=== PATIENT | female | born 1965 | race Caucasian/White ===

== ENCOUNTER → 2020-03-01 08:34 | Outpatient (CLI) | payer OTHER, SELFPAY ==
--- NOTE | ~2020-03-01 | MR_ITS ---
EXAMINATION: MR brain IAC wo con EXAM DATE: 03/01/2020 09:43 INDICATION: Vertigo, loss of hearing more in the left ear. Bilateral tinnitus, buzzing left ear, roar ing right ear. TECHNIQUE: Multi-sequential, multiplanar MR images of the brain, brainstem, internal auditory canals were obtained without contrast. Whole brain sagittal T1, axial diffusion, gradient echo (T2*), T1, T 2, FLAIR sequences obtained. High resolution coronal 3-D FIESTA, coronal T1 FSE, axial T1 FSPGR of t he internal auditory canals. There is no prior study for comparison. FINDINGS: No evidence of mastoid or middle ear opacification. The 7th/8th cranial nerve complexes a re symmetric, normal in course and caliber. No cerebellopontine angle masses. Posterior fossa unrem arkable. Right vertebral artery dominant. There are no areas of restricted diffusion to suggest acute infarcti on. There is no acute hemorrhage seen on the T2*, a hemosiderin sensitive sequence. No intraparench ymal brain mass. The ventricles are normal in size. There are no extra-axial collections. Flow void s are seen in the cerebral arteries on the T2-weighted sequences consistent with their expected paten cy. The orbits are unremarkable. Soft tissue is unremarkable. IMPRESSION: 1. Unremarkable brain MRI examination. Reviewed, dictated and finalized at location A.
== END ==
PROVIDERS: PCP Family Medicine; Visit Provider Otolaryngology
DX: H93.11 Tinnitus, right ear (principal); H90.A32 Mixed conductive and sensorineural hearing loss, unilateral, left ear with restricted hearing on the contralateral side
CPT/HCPCS: 70551

== ENCOUNTER → 2021-02-18 12:20 | Outpatient (CLI) | payer OTHER, SELFPAY ==
--- NOTE | ~2021-02-18 | MR_ITS ---
EXAMINATION: MR cervical spine wo con DATE: 02/18/2021 13:00 INDICATION: Cervical spine fusion. TECHNIQUE: Magnetic resonance imaging (MRI) of the cervical spine was performed without intravenous c ontrast. Sequences included sagittal T2-weighted FSE, sagittal STIR FSE, sagittal T1-weighted FSE, ax ial MERGE, and axial T2-weighted FSE. COMPARISON: Cervical spine MRI 01/15/2017 FINDINGS: There is 11 degrees levoscoliosis of cervicothoracic spine. There is 2 mm retrolisthesis of C4 on C5. There is kyphosis of upper cervical spine. There are changes of anterior fusion procedure from C5 to C7 with discectomies, interbody bone graft, and anterior plate and screws. There is severe ly decreased disc height at C4-C5 and C7-T1 with endplate remodeling. The spinal cord signal intensit y is normal. There are nodules in the thyroid measuring up to 11 mm, likely not clinically significan t. The following disc levels are specifically discussed: C2-C3: The disc does not extend beyond the endplate margin. There is no uncovertebral joint osteoarth ritis. There is mild right and severe left facet joint osteoarthritis. There is mild left neural fora odette stenosis. There is no central canal stenosis. C3-C4: The disc is bulging. There is moderate right and mild left uncovertebral joint osteoarthritis. There is mild right and moderate left facet joint osteoarthritis. There is mild bilateral neural for aminal stenosis. There is mild central canal stenosis with ventral indentation of the spinal cord. C4-C5: The disc is bulging. There is severe bilateral uncovertebral joint osteoarthritis. There is mi ld bilateral facet joint osteoarthritis. There is moderate bilateral neural foraminal stenosis. There is moderate central canal stenosis with ventral and dorsal indentation of spinal cord. C5-C6: There is no uncovertebral joint hypertrophy. There is no facet joint hypertrophy. There is no neural foraminal stenosis. There is no central canal stenosis. C6-C7: There is mild right uncovertebral joint hypertrophy. There is no facet joint hypertrophy. Ther e is mild right neural foraminal stenosis. There is no central canal stenosis. C7-T1: The disc is bulging. There is moderate bilateral uncovertebral joint osteoarthritis. There is severe bilateral facet joint osteoarthritis. There is mild right and moderate left neural foraminal s tenosis. There is mild central canal stenosis with ventral indentation of the spinal cord. IMPRESSION: 1. Severe cervical spondylosis, stable from 01/15/2017. 2. Anterior fusion procedure from C5 to C7. Reviewed, dictated and finalized at location A.
== END ==
PROVIDERS: PCP Family Medicine; Visit Provider Family Medicine
DX: Z98.1 Arthrodesis status (principal); M47.892 Other spondylosis, cervical region
CPT/HCPCS: 72141

== ENCOUNTER → 2022-02-04 13:04 | Outpatient (CLI) | payer OTHER, SELFPAY ==
--- NOTE | ~2022-02-04 | US_ITS ---
EXAMINATION: US carotid duplex BI DATE: 02/04/2022 13:44 INDICATION: Vertigo. Encephalopathy. Arrhythmia. Chest pain. Shortness of breath. TECHNIQUE: Grayscale, color Doppler, and pulsed Doppler images of the cervical carotid arteries were obtained. The degree of vessel stenosis is placed in one of the following categories: normal, <50%, 5 0-69%, >=70% but less than near-occlusion, near-occlusion, or total occlusion. Note that percent sten osis relative to normal distal artery lumen diameter is indirectly measured from velocity measurement s as described by Ronald, et al. Radiology 2003; 229:340-346. COMPARISON: None. FINDINGS: RIGHT: The right common carotid artery (CCA) peak systolic velocity (PSV) is 68 cm/s. The right internal car otid artery (ICA) PSV is 88 cm/s. The right ICA end-diastolic velocity (EDV) is 37 cm/s. The right IC A/CCA PSV ratio is 1.3. Grayscale and color Doppler images yield an estimate of <50% diameter reducti on from plaque in the ICA. The external carotid artery (ECA) PSV is 54 cm/s. There is antegrade flow in the right vertebral artery. LEFT: The left CCA PSV is 73 cm/s. The left ICA PSV is 56 cm/s. The left ICA EDV is 21 cm/s. The left ICA/C CA PSV ratio is 0.8. Grayscale and color Doppler images yield an estimate of <50% diameter reduction from plaque in the ICA. The ECA PSV is 59 cm/s. There is antegrade flow in the left vertebral artery. IMPRESSION: 1. <50% stenosis in the right internal carotid artery. 2. <50% stenosis in the left internal carotid artery. Reviewed, dictated and finalized at location A.
== END ==
PROVIDERS: PCP Family Medicine; Visit Provider Family Medicine
DX: R09.89 Other specified symptoms and signs involving the circulatory and respiratory systems (principal); I65.23 Occlusion and stenosis of bilateral carotid arteries; I49.9 Cardiac arrhythmia, unspecified; R07.89 Other chest pain; R06.02 Shortness of breath; H81.09 Meniere's disease, unspecified ear
CPT/HCPCS: 93880

== ENCOUNTER 2022-02-04 13:52 | Outpatient (CLI) | payer OTHER, SELFPAY ==
--- NOTE | 2022-02-04 | ECG_ITS ---
Measurements Intervals [place] Rate: 77 P: 36 [place]: 127 QRS: 56 QRSD: 79 T: 60 QT: 370 QTc: 421 Interpretive Statements SINUS RHYTHM POSSIBLE LEFT ATRIAL ENLARGEMENT VOLTAGE CRITERIA FOR LVH ST ABNORMALITY IN ANTEROLATERAL LEADS- CONSIDER ISCHEMIA ABNORMAL ECG NO PREVIOUS ECG AVAILABLE FOR COMPARISON Electronically Signed On 02-04-2022 14:52:39 CDT by Andreas Melgoza D.O.
--- NOTE | 2022-02-07 16:18 | WPDHOLTEREM ---
Holter/Event Monitor Holter/Event Monitor Date of procedure: 02/04/22 Holter/Event Procedure: 48 Hr Holter Monitor Indications: Arrhythmia, CP, SOB Conclusion: 1. 48 hour holter monitor on 02/04/22. 2. Underlying rhythm is sinus rhythm. HR range 51-143 bpm; average HR 77 bpm. 3. There are 13 premature supraventricular complexes and 3 supraventricular couplets. No supraventricular tachycardia. 4. There are 9 premature ventricular complexes. No ventricular tachycardia. 5. No sinoatrial or atrioventricular blocks. No significant pauses greater than 2 seconds. 6. Patient reports symptoms of heart beating hard, dizziness, lightheadedness which demonstrate sinus rhythm, HR range 74-103 bpm.
== END 2022-02-04 13:53 | disposition home or self-care (01) ==
LOC: ANHCARD 13:55
PROVIDERS: PCP Family Medicine; Visit Provider Family Medicine
DX: R07.89 Other chest pain (principal); I49.9 Cardiac arrhythmia, unspecified; R06.02 Shortness of breath; H81.09 Meniere's disease, unspecified ear; R09.89 Other specified symptoms and signs involving the circulatory and respiratory systems; R94.31 Abnormal electrocardiogram [ECG] [EKG]
CPT/HCPCS: 93005; 93225; 93226

== ENCOUNTER → 2022-02-14 15:38 | Outpatient (CLI) | payer OTHER, SELFPAY ==
--- NOTE | ~2022-02-14 | CT_ITS ---
EXAMINATION: CTA neck DATE: 02/14/2022 16:02 INDICATION: Pulsatile tinnitus. Vertigo. Intractable migraine. TECHNIQUE: Computed tomographic angiography (CTA) of the neck was performed with 100 mL Omnipaque-350 intravenous contrast. Automated exposure control and iterative reconstruction technique were employe d. The dose-length product was 500.53 mGy-cm. Maximum intensity projection and volume rendered 3D-rec onstructions were created by the technologist on a separate workstation. COMPARISON: None. FINDINGS: There are nodules in the thyroid measuring up to 10 mm, likely not clinically significant. There are no pathologically enlarged lymph nodes. Right vertebral artery is dominant. There is no visible plaqu e in the proximal internal carotid arteries. There is 0% stenosis of the proximal right internal wong tid artery relative to normal distal artery lumen diameter (NASCET criteria). There is 0% stenosis of the proximal left internal carotid artery relative to normal distal artery lumen diameter. The masto id air cells are normal. The paranasal sinuses are clear. The orbits are normal. There is severe cerv ical spondylosis. There are changes of anterior fusion procedure from C5 to C7. IMPRESSION: 1. No etiology for the patient's symptoms. 2. 0% stenosis of the proximal internal carotid arteries relative to normal distal artery lumen diame ters (NASCET criteria). Reviewed, dictated and finalized at location A. IMPRESSION: 1. No etiology for the patient's symptoms. 2. 0% stenosis of the proximal internal carotid arteries relative to normal dis apolinar artery lumen diameters (NASCET criteria).
[2022-02-14 15:52] LABS: Estimated Glomerular Filt Rate > 60
== END ==
PROVIDERS: PCP Family Medicine; Visit Provider Family Medicine
DX: H93.A9 Pulsatile tinnitus, unspecified ear (principal); G43.011 Migraine without aura, intractable, with status migrainosus; R42 Dizziness and giddiness
CPT/HCPCS: 70498; Q9967

== ENCOUNTER 2023-05-11 02:50 | Day surgery (SDC) | payer OTHER, SELFPAY ==
[2023-04-27 14:23] VITALS: BMI 30.2
--- NOTE | 2023-05-08 09:33 | SUR.PREOP ---
Patient called regarding upcoming procedure. Reviewed preop instructions, appointment times, and procedure prep.
--- NOTE | 2023-05-09 11:21 | PM.HPGS ---
History of Present Illness History of Present Illness Consent: Risks, benefits, and alternatives have been discussed and questions answered. Patient agrees to proceed with procedure. Chief complaint: neoplasm screening Narrative: Uma Lopes is a 58 year old female Referred for colon cancer screening. Review of Systems Review of Systems: All systems reviewed & are unremarkable except as noted in HPI and below PMFSH Social History Social History Smoking status: Never smoker Substance use type: does not use Meds Home Medications and Allergies Home Medications Medication Instructions Recorded Confirmed Type atogepant 60 mg tablet (Qulipta) 60 mg PO DAILY 04/27/23 04/27/23 History clonazepam 1 mg tablet 1 mg PO BID PRN Dizziness 04/27/23 04/27/23 History diclofenac sodium 75 mg 75 mg PO DAILY 04/27/23 04/27/23 History tablet,delayed release duloxetine 30 mg capsule,delayed 30 mg PO DAILY 04/27/23 04/27/23 History release hydrochlorothiazide 25 mg tablet 25 mg PO DAILY 04/27/23 04/27/23 History losartan 50 mg tablet 50 mg PO DAILY 04/27/23 04/27/23 History meclizine 25 mg tablet 25 mg PO DAILY PRN Dizziness 04/27/23 05/11/23 History zolpidem 10 mg tablet 10 mg PO HS PRN Insomnia 04/27/23 04/27/23 History Allergies Allergy/AdvReac Type Severity Reaction Status Date / Time bacitracin Allergy Unknown Swelling Verified 05/11/23 07:43 benzalkonium chloride Allergy Unknown Swelling Verified 05/11/23 07:43 gramicidin D Allergy Unknown Swelling Verified 05/11/23 07:43 polymyxin B Allergy Unknown Swelling Verified 05/11/23 07:43 BACITRACIN ZINC Allergy Unknown Swelling Uncoded 05/11/23 07:43 NEOMYCIN SULFATE Allergy Unknown Swelling Uncoded 05/11/23 07:43 POLYMYXIN B SULFATE Allergy Unknown Swelling Uncoded 05/11/23 07:43 Exam Const: General: alert Orientation/consciousness: patient oriented x3 Resp: Auscultation: clear to auscultation bilaterally Cardio: Rhythm: regular rhythm GI: GI Palp: Yes Soft to palpation and No Tenderness to palpation present (GI) Neuro: General: patient oriented x3 Assessment and Plan Assessment and plan (1) Colon cancer screening: Code(s): Z12.11 - Encounter for screening for malignant neoplasm of colon Status: Acute Assessment and Plan: Colonoscopy with possible biopsy or polypectomy or cautery or injection of substances.
[2023-05-11 07:44] VITALS: BP 149/90; PULSE 77; RESP 16; TEMP 36.6; O2SAT 100
[2023-05-11] MEDS: LACTATED RINGERS 1,000 ML 150 ML IV CONT (08:02)
[2023-05-11 09:06] VITALS: BP 119/75; PULSE 74; RESP 18; O2SAT 98
[2023-05-11 09:13] VITALS: BP 120/87; PULSE 78; RESP 18; O2SAT 100
[2023-05-11 09:24] VITALS: BP 143/95; PULSE 70; RESP 16; O2SAT 100
== END 2023-05-11 09:36 | disposition home or self-care (01) ==
PROVIDERS: PCP Family Medicine; Visit Provider Internal Medicine Gastroenterology
PROC: 0DJD8ZZ Inspection of Lower Intestinal Tract, Via Natural or Artificial Opening Endoscopic (ICD-10-PCS; CPT 45378; principal; 2023-05-11 09:00)
DX: Z12.11 Encounter for screening for malignant neoplasm of colon (principal)
CPT/HCPCS: 45378; J2704; J7120

== ENCOUNTER 2024-08-11 00:37 | Day surgery (SDC) | payer OTHER, SELFPAY ==
[2024-08-04 09:26] VITALS: BMI 28.3
--- OUTSIDE RECORDS SUMMARY | 2024-08-11 00:40 | XMS_ITS | Referral Summary ---
Author Organization [facility] Address [address] [place] [address] Care Team Providers Care Chancellor Name Role Phone Ester Beebe MD Primary Care Provider Source Comments [facility],non-owned Affiliates and Associated Physician Practices is amultiple site organization consisting of ambulatory clinics and hospital sitesin [place], [place], [place] and [place]. This disclosure is being madepursuant to the Care Everywhere program and may not contain all information available regarding this patient. Last updated 18.[facility] Allergies Active Allergy Reactions Criticality Noted Date Comments Qhdsrbmc-Ahycsituxz-She ymyxin Itching,Rash Medium 03/17/2019 Triple antibiotic made sore worse/itching Medications * Be aware that medications may not be up to date on this document. Alwaysverify current medications with the patient. Medication Sig Dispensed Refills Start Date End Date Status B Complex Vitamins CAPS Take 1 capsule by mouth once daily Active butalbital-acetami nophen-caffeine (FIORICET) 50-325-40 MG tablet Take 1 tablet by mouth 4 times daily as needed 01/03/2021 Active Fremanezumab-vfrm 225 MG/1.5ML SOAJ Inject 225 mg subcutaneously every 30 days 01/17/2021 Active losartan (COZAAR) 25 MG tablet Take 25 mg by mouth once daily Active montelukast (SINGULAIR) 10 MG tablet Take 1 tablet by mouth at bedtime 01/29/2021 Active meloxicam (MOBIC) 15 MG tablet Take 15 mg by mouth once daily 04/04/2021 Active methylcellulose, laxative, (CITRUCEL) powder Take by mouth once daily Active ondansetron (ZOFRAN) 8 MG tablet Take 8 mg by mouth as needed Active polyethylene glycol 3350 (MIRALAX) 17 GM/SCOOP powder Take 17 g by mouth once daily Active zolpidem (AMBIEN) 10 MG tablet Take 10 mg by mouth at bedtime 10/30/2020 Active Active Problems No known active problems Social History Tobacco Use Types Packs/Day Years Used Date Smoking Tobacco: Never Smokeless Tobacco: Never Alcohol Use Standard Drinks/Week Comments Yes 0 (1 standard drink = 0.6 oz pur e alcohol) occas Sex and Gender Information Value Date Recorded Sex Assigned at Not on file Gender Identity Not on file Sexual Orientation Not on file Last Filed Vital Signs Vital Sign Reading Time Taken Comments Blood Pressure 130/78 04/11/2021 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 Pulse 81 04/11/2021 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 Temperature 36.3 C (97.4 F) 03/26/2009 11:06 AM CDT Respiratory Rate 16 03/26/2009 4:42 PM CDT Oxygen Saturation 96% 03/26/2009 4:42 PM CDT Inhaled Oxygen Concentration - - Weight 77.1 kg (170 lb) 04/11/2021 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 Height 160 cm (5' 3 ) 04/11/2021 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
--- OUTSIDE RECORDS SUMMARY | 2024-08-11 00:40 | XMS_ITS | Patient Health Summary ---
Author Organization [facility] Address [address] [place] [address] Care Team Providers Care Minor League Baseball Player Name Role Phone Ester Beebe MD Primary Care Provider [phone] Note from [facility] [place][note 2],non-owned Affiliates and Associated Physician Practices is amultiple site organization consisting of ambulatory clinics and hospital sitesin [place], [place], [place] and [place]. This disclosure is being madepursuant to the Care Everywhere program and may not contain all information available regarding this patient. Last updated 18.[facility] Allergies * Qdwgkfas-Kcofqihrlb-Axtsdunih(Itching,Rash) -Medium Criticality Medications * Be aware that medications may not be up to date on this document. Alwaysverify current medications with the patient. * B Complex Vitamins CAPS Take 1 capsule by mouth once daily * qoihhpubiw-cdhhiomuowazt-kpkphdwg (FIORICET) 50-325-40 MG tablet(Started 01/03/2021) Take 1 tablet by mouth 4 times daily as needed * Fremanezumab-vfrm 225 MG/1.5ML SOAJ(Started 01/17/2021) Inject 225 mg subcutaneously every 30 days * losartan (COZAAR) 25 MG tablet Take 25 mg by mouth once daily * montelukast (SINGULAIR) 10 MG tablet(Started 01/29/2021) Take 1 tablet by mouth at bedtime * meloxicam (MOBIC) 15 MG tablet(Started 04/04/2021) Take 15 mg by mouth once daily * methylcellulose, laxative, (CITRUCEL) powder Take by mouth once daily * ondansetron (ZOFRAN) 8 MG tablet Take 8 mg by mouth as needed * polyethylene glycol 3350 (MIRALAX) 17 GM/SCOOP powder Take 17 g by mouth once daily * zolpidem (AMBIEN) 10 MG tablet(Started 10/30/2020) Take 10 mg by mouth at bedtime Active Problems No known active problems Social [...] Comments Blood Pressure 130/78 04/11/2021 8:50 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 Pulse 81 04/11/2021 8:50 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 Temperature 36.3 C (97.4 F) 03/26/2009 11:06 AM CDT Respiratory Rate 16 03/26/2009 4:42 PM CDT Oxygen Saturation 96% 03/26/2009 4:42 PM CDT Inhaled Oxygen Concentration - - Weight 77.1 kg (170 lb) 04/11/2021 8:50 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 Height 160 cm (5' 3 ) 04/11/2021 8:50 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 Body Mass Index 30.11 04/11/2021 8:50 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 Procedures * XR CERVICAL SPINE 2 OR 3VW(Performed 07/25/2010) Performed for Status post cervical spinal fusion * CT CERVICAL SPINE WO CONTRAST(Performed 12/20/2009) Performed for Pseudoarthrosis * PT PTT PANEL(Performed 03/26/2009) * HCG URINE QUALITATIVE - POINT OF CARE(Performed 03/26/2009) * GROSS + MICRO EXAM(Performed 03/26/2009) * GROSS + MICRO EXAM(Performed 03/26/2009) * GROSS + MICRO EXAM(Performed 01/22/1999) Results * XR CERVICAL SPINE 2 OR 3 VW (07/25/2010 10:04 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) Anatomical Region Laterality Modality Spine Radiographic Zana ging 07/25/2010 12:1 5 PM HEAD GAUGE UNIT OPERATOR Impressions 07/25/2010 12:42 PM HEAD GAUGE UNIT OPERATOR Anterior cervical fusion has been performed from C5 through C7. Hardware is intact. Discogenic degenerative change is present at C4-C5 and C3-C4. Narrative 07/25/2010 12:42 PM HEAD GAUGE UNIT OPERATOR CERVICAL SPINE INDICATION: Neck pain FINDINGS: AP and lateral views of the cervical spine are submitted. Anterior cervical fusion plate spans the C5 through C7 vertebral bodies. Bone graft material is present at C5-C6 and C6-C7 disc space. This appears to be well incorporated into the adjacent vertebral bodies. Moderate disc space narrowing is present at C4-C5 with mild disc space narrowing at C3-C4. Osteophyte production is present at each of these levels. Hardware is intact and there is no radiographic evidence of loosening. Procedure Note Amy Soernsen MD - 07/25/2010 CERVICAL SPINE INDICATION: Neck pain FINDINGS: AP and lateral views of the cervical spine are submitted. Anterior cervical fusion plate spans the C5 through C7 vertebral bodies. Bone graft material is present at C5-C6 and C6-C7 disc space. This appears to be well incorporated into the adjacent vertebral bodies. Moderate disc space narrowing is present at C4-C5 with mild disc space narrowing at C3-C4. Osteophyte production is present at each of these levels. Hardware is intact and there is no radiographic evidence of loosening. IMPRESSION Anterior cervical fusion has been performed from C5 through C7. Hardware is intact. Discogenic degenerative change is present at C4-C5 and C3-C4. Vinny Rosado MD DIAGNOSTIC ZANA GING ORDERABLES * CT CERVICAL SPINE NON CONTRAST (12/20/2009 9:14 AM CDT) Anatomical Region Laterality Modality Spine Computed Tomogra phy 12/20/2009 11:5 0 AM CDT Impressions 12/20/2009 12:53 PM CDT Mild right foraminal narrowing at C3-C4. Mild bilateral foraminal narrowing at C4-C5. No evidence of hardware complication. Narrative 12/20/2009 12:[address] CERVICAL SPINE WITHOUT CONTRAST INDICATION: Cervical radiculopathy, neck pain, prior cervical surgery. COMPARISON: None available. TECHNIQUE: Multiple axial CT images of the cervical spine were obtained along with coronal and sagittal multiplanar reformats. FINDINGS: Anterior osteometallic and interbody allograft fusion from C5 to C7 is noted. There is no lucency about the hardware. The allografts are well incorporated. C2-C3: No canal or neural foraminal stenosis. C3-C4: Disc osteophyte bulge eccentric to the right. Mild right foraminal narrowing secondary to uncovertebral joint hypertrophy. No canal stenosis. C4-C5: Broad-based disc bulge with partial effacement of the ventral thecal sac. Mild bilateral foraminal narrowing secondary to uncovertebral joint hypertrophy. No canal stenosis. C5-C6: No canal or neural foraminal stenosis. C6-C7: No canal or neural foraminal stenosis. C7-T1: No canal or neural foraminal stenosis. Procedure Note Obed Joaquin MD - 12/20/2009 CT CERVICAL SPINE WITHOUT CONTRAST INDICATION: Cervical radiculopathy, neck pain, prior cervical surgery. COMPARISON: None available. TECHNIQUE: Multiple axial CT images of the cervical spine were obtained along with coronal and sagittal multiplanar reformats. FINDINGS: Anterior osteometallic and interbody allograft fusion from C5 to C7 is noted. There is no lucency about the hardware. The allografts are well incorporated. C2-C3: No canal or neural foraminal stenosis. C3-C4: Disc osteophyte bulge eccentric to the right. Mild right foraminal narrowing secondary to uncovertebral joint hypertrophy. No canal stenosis. C4-C5: Broad-based disc bulge with partial effacement of the ventral thecal sac. Mild bilateral foraminal narrowing secondary to uncovertebral joint hypertrophy. No canal stenosis. C5-C6: No canal or neural foraminal stenosis. C6-C7: No canal or neural foraminal stenosis. C7-T1: No canal or neural foraminal stenosis. IMPRESSION Mild right foraminal narrowing at C3-C4. Mild bilateral foraminal narrowing at C4-C5. No evidence of hardware complication. Vinny Rosado MD CT ORDERABLES * PT PTT PANEL (03/26/2009 6:45 AM CDT) PT 10.1 9.4 - 11.4 seconds [facility] INR .95 SEE BELOW [facility] Comment: 0.92-1.12 Normal 2.0-3.0 Therapeutic Low Risk 2.5-3.5 Therapeutic High Risk PTT 27.6 26.0 - 32.8 seconds [facility] BLOOD SPECIMEN / Unknown 03/26/2009 6:45 AM CDT 03/26/2009 6:53 AM CDT Narrative Resulting Agency Comment Performed By -COA Vinny Rosado MD LAB - COAGULAT ION ORDERABLES [facility] [address] [place] [address] * HCG URINE QUALITATIVE - POINT OF CARE (03/26/2009 5:50 AM CDT) HCG Qual Urine NEGATIVE Negative [facility] QC Verified yes Yes [facility] POC T TESTING Urine specimen (specimen) URINE / Unknown 03/26/2009 5:50 AM CDT Vinny Rosado MD LAB - POINT OF CARE ORDERABLES Performing Organization Address [facility] Co de Phone Number [facility] [address] [address] * GROSS + MICRO EXAM (03/26/2009 12:00 AM CDT) Only the most recent of3 resultswithin the time period is included. Result CASE NUMBER [id number] Comment: ORDERING PHYSICIAN VINNY ROSADO SPECIMEN TYPE Hardware DATE OF PROCEDURE 03/26/2009 SPECIMEN LABELED Hardware PRE-OP DIAGNOSIS Pseudoarthrosis GROSS DESCRIPTION GROSS DESCRIPTION One specimen is received without fixative labeled hardware patient mUa Lopes, and consists of a metal plate, 4 x 2 cm in diameter and 0.5 cm in thickness. It has three small screws in the center. Also in the container there are six metal screws measuring 1.7 cm in length and 0.3 cm in diameter. No sections are submitted. MICROSCOPIC DESCRIPTION None. DIAGNOSIS Hardware, removed from cervical vertebra history of pseudoarthrosis Dictated by Nirav Meredith M.D. [employer] AMY MORALES Electronically Signed By NIRAV MEREDITH MISCELLANEOUS SAMPLE S / Unknown 03/26/2009 03/26/2009 1:20 PM CDT Historical Provider LAB - PATHOLOGY/C YTOLOGY ORDERABLES Care Teams Minor League Baseball Player Relationship Specialty Start Date End Date Ester Beebe MD [address] [place] [address] PCP - General Family Medicine 04/11/21
--- OUTSIDE RECORDS SUMMARY | 2024-08-11 00:40 | XMS_ITS | Data Portability ---
Author Organization [facility], [facility] Address [address] [address] Care Team Providers Care Orthopaedic General Name Role Phone Unavailable Primary Care Provider Unavailabl e Assessment No assessment recorded. Plan of Treatment Reminders Order Date Submit Date Provider Last Modified By Organization Details Last Modified Time Details Appointments None record ed. Lab None record ed. Referral None record ed. Procedures None record ed. Surgeries None record ed. Imaging None record ed. Medication Orders None record ed. Patient TargetsNo targets recorded. Patient InstructionsNo instructions recorded. Reason for Referral None Reported. Results Created Date Observation Date Name Description Value Unit Range Abnormal Flag Note LastModifiedBy Organization Detail LastModifiedTime 05/21/20 18 01/07/2018 MRI, shoul josh, w/wo contr ast No observ ation record ed. BARCODE Not Available 2017 09:44:51 05/21/20 18 12/10/2017 XR, shoul josh No observ ation record ed. BARCODE Not Available 2017 09:44:51 Result Notes None recorded. Problems No Known Problems Procedures Surgical History Date Name Laterality Status Provider Name and Address Organization Details Recorded Time 06/01/19 17 foot manipulation completed [facility] 05/20/2018 14:56:52 06/01/18 99 fusion completed [facility] 05/20/2018 14:56:35 Imaging Results Imaging Date Name Status LastModified by Organiz ation Details LastModified Time 01/07/2018 MRI, shoulder, w/wo contrast completed BARCODE Information not available 05/21/2018 09:44:51 12/10/2017 XR, shoulder completed BARCODE Information not available 05/21/2018 09:44:51 Procedure Notes None recorded. Medical Equipment None Reported. Allergies No known drug allergies Medications Name Sig Start Date Stop Date Status Note LastModified by Organization Details LastModified Time hydrocodone 5 mg-acetamino phen 325 mg tablet active Not Available Not Available Not Available ondansetron HCl 8 mg tablet one tablet tid prn active Not Available Not Available No t Available prednisone 20 mg tablet active Not Available Not Available Not Available butalbital-a cetaminophen -caffeine 50 mg-325 mg-40 mg tablet active Not Available Not Available No t Available oxycodone-ac etaminophen 5 mg-325 mg tablet active Not Available Not Available Not Available losartan 25 mg tablet active Not Available Not Available No t Available diazepam 10 mg tablet Take 1 tablet(s) 30 mins PRIOR to appointment , Repeat at appointment time PRN anxiety active Not Available Not Available No t Available zolpidem 10 mg tablet active Not Available Not Available No t Available topiramate 100 mg tablet active Not Available Not Available Not Available bupropion HCl XL 150 mg 24 hr tablet, extended release active Not Available Not Available Not Available Vitals Date Recorded Body height Body mass index (BMI) Body weight Heart rate Systolic blood pressure Diastolic blood pressure Provider Name and Address Organization Details Last Updated DateTime 8 160.02 cm 28.3 kg/m2 97674.7 8 g 79 /min 159 mm[Hg] 95 mm[Hg] Lana Kaufman [facility] [facility] 14:53:54 Date Recorded Body height Body mass index (BMI) Body weight Heart rate Systolic blood pressure Diastolic blood pressure Provider Name and Address Organization Details Last Updated DateTime 9 160.02 cm 28.3 kg/m2 46752.7 8 g 78 /min 135 mm[Hg] 91 mm[Hg] Jos Romero [facility] 10:32:44 Social History Question Answer Notes LastModified by Organizat ion Details LastModified Time Tobacco Smoking Status Never Smoker Lana jaquez [facility] 05/20/2018 14:55:48 What Is Your Level Of Alcohol Consumption? 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 08/05/2018 Information not available 12/23/2018 Seat Belts Used Routinely Yes Information not available 05/20/2018 Sex: Unknown Functional Status None recorded. Mental Status None recorded. Family History Relationship Description Onset Age of this Age Resolved Age Notes LastModified by Organization Details LastModified Time Mother Arthritis sjohll Not available 05/20/2018 14:54:19 Mother Family history of malignant neoplasm sjohll Not available 2017 14:55:38 Father Diabetes mellitus sjohll Not available 2017 14:54:38 Brother Diabetes mellitus sjohll Not available 2017 14:54:38 Sister Family history of malignant neoplasm sjohll Not available 2017 14:55:38 Medical History Condition Response Coronary Artery Disease N HIV or AIDS N Gout N Kidney Stones N Hyperthyroidism N Hernia N Head Trauma/Injury N COPD N Blood Clots N Lung Disease N Hypothyroidism N Depression N Pacemaker N Anxiety Disorder N Arthritis N Cancer N Stroke N Neck Injury N Leg or Foot Ulcers N High Cholesterol N Liver Disease N Rheumatoid Arthritis N Headaches N Fibromyalgia N Kidney Disease N Heart Problems N Migraines N Thyroid Problems N Anemia N Multiple Sclerosis N Tendon Tear N Ulcers N Heart Attack ([place]) N Diabetes N Bleeding Disorder N Seizures/Epilepsy N Tuberculosis N Urinary Tract Infection N Back Problems N Diverticulitis N Asthma N Lupus N Peripheral Vascular Disease N Sleep Disorder N GERD/Reflux N Hepatitis N Aneurysm N Heart Disease N Pulmonary Embolism N Hypertension N Osteoporosis N Gynecological HistoryNo gynecological history recorded. Obstetrics History GPAL:G 0 P 0 0 0 0 Past Encounters Encounter ID Performer Location Encounter Start Date Encounter Closed Date Diagnosis/Indication Diagnosis SNOMED-CT Code Diagnosis ICD10 Code Diagnosis Note [id number] [facility] [address] [place] [id number] 05/20/2018 14:23:04 05/21/2018 11:32:03 [id number] [facility] [id number] [place] [id number] 08/05/2018 10:21:03 08/05/2018 13:29:15 Shoulder pain 74455017 M25.512 Health Concerns Section Related Observation LastModified by Organization Detai ls LastModified Time None Recorded Concern Status LastModified by Organization Details LastModified Time None Recorded Advance Directives Directive None Recorded Payers Encounter Date Sequence Insurance Name Policy Number Policy Koehler Covered Member ID Koehler Member ID Guarantor Name 05/20/2018 1 [employer] - DOS PRIOR TO 20 - [facility] [employer] [id number] Uma Lopes [id number] Uma Lopes 08/05/2018 1 [employer] - DOS PRIOR TO 20 - [facility] [employer] [id number] Uma Lopes [id number] Uma Lopes OBGyn Episode No OBEpisode recorded.
--- OUTSIDE RECORDS SUMMARY | 2024-08-11 00:40 | XMS_ITS | Encounter Summary ---
Author Organization [employer] [facility] Address [address] [place] [address] Care Team Providers Care Coffee Roaster Name Role Phone Ester Beebe MD Primary Care Provider Encounter Details Date Type Department Care Team (Late st Contact Info) Description 08/09/2024 External Device Data [facility] ABSTRACTION Provider, Abstract NO ADDRESS ON FILE Social History Tobacco Use Types Packs/Day Years Used Date Smoking Tobacco: Never Smokeless Tobacco: Never Alcohol Use Standard Drinks/Week Comments Yes 0 (1 standard drink = 0.6 oz pur e alcohol) rarely--holidays Feeling Safe Answer Date Recorded Within the last year, have y ou been afraid of your partner or ex-partner? No 09/22/2023 Within the last year, have y ou been humiliated or emotionally abused in other ways by your partner or ex-partner? No Within the last year, have y ou been kicked, hit, slapped, or otherwise physically hurt by your partner or ex-partner? No 09/22/2023 Within the last year, have y ou been raped or forced to have any kind of sexual activity by your partner or ex-partner? No 09/22/2023 Comments No Sex and Gender Information Value Date Recorded Sex Assigned at Not on file Legal Sex Female 5:41 AM DEVIL DOG Gender Identity Not on file Sexual Orientation Not on file Occupation Industry Job Start Date Job End Date Not on file Not on file Not on file Not on file documented as of this encounter Plan of Treatment Upcoming Encounters Date Type Department Care Team (Late st Contact Info) Description 09/22/2024 9:20 AM CDT Appointment [facility] [address] [place] [address] [place] [address] [address] [facility] [address] [place] [address] 09/22/2024 10:15 AM CDT Office Visit [facility] Breast Surgery [address] [facility] [address] [place] [address] [place] [address] [address] [facility] [address] [place] [address] documented as of this encounter Visit Diagnoses Not on filedocumented in this encounter Care Teams Coffee Roaster Relationship Specialty Start Date End Date Ester Beebe MD [address] [place] [phone] PCP - General Family Practice 04/28/16 documented as of this encounter
--- OUTSIDE RECORDS SUMMARY | 2024-08-11 00:40 | XMS_ITS | Clinical Summary ---
Author Organization [facility] Address [address] [place] [address] Care Team Providers Care Municipal Court Judge Name Role Phone Ester Beebe MD Primary Care Provider Source Comments [facility],non-owned Affiliates and Associated Physician Practices is amultiple site organization consisting of ambulatory clinics and hospital sitesin [place], [place] and [place]. This disclosure is being madepursuant to the Care Everywhere program and may not contain all information available regarding this patient. Last updated 18.[facility] Allergies Active Allergy Reactions Criticality Noted Date Comments Dkcyytaj-Huiopsjvag-Lqn ymyxin Itching,Rash Medium 03/17/2019 Triple antibiotic made [...] Active Active Problems No known active problems Family History Medical History Relation Name Comments CAD (Coronary Artery Disease) Brother Diabetes - Type 2 Brother Hypertension Brother CVA Father Diabetes - Type 2 Father Hypertension Father Cancer - Breast Mother Hypertension Mother Cancer - Breast Sister Relation Name Status Comments Brother Father Mother Sister Social History Tobacco Use Types Packs/Day Years [...] Comments Blood Pressure 130/78 04/11/2021 8:50 AM PIGMENT AND LACQUER MIXER Pulse 81 04/11/2021 8:50 AM PIGMENT AND LACQUER MIXER Temperature 36.3 C (97.4 F) 03/26/2009 11:06 AM CDT Respiratory Rate 16 03/26/2009 4:42 PM CDT Oxygen Saturation 96% 03/26/2009 4:42 PM CDT Inhaled Oxygen Concentration - - Weight 77.1 kg (170 lb) 04/11/2021 8:50 AM PIGMENT AND LACQUER MIXER Height 160 cm (5' 3 ) 04/11/2021 8:50 AM PIGMENT AND LACQUER MIXER Body Mass Index 30.11 04/11/2021 8:50 AM PIGMENT AND LACQUER MIXER Plan of Treatment Health Maintenance Due Date Last Done Comments COLOGUARD (AGES 45-75) - COL ON CA SCREENING 1966 COLON MONITORING 1966 COLONOSCOPY - COLON CA SCREENING 1966 CT COLONOGRAPHY - COLON CA SCREENING 1966 Colorectal Cancer Screening 1966 FIT - COLON CA SCREENING 1966 FLEX SIG - COLON CA SCREENING 1966 LIPID TESTING 1966 MAMMOGRAM 1966 PAP SMEAR 1966 HIV SCREENING 1981 HEPATITIS C SCREENING 04/28/1984 DTAP/TDAP/TD VACCINES (1 - Tdap) 1985 HEPATITIS B VACCINE (1 of 3 - 19+ 3-dose series) 1985 PNEUMOCOCCAL VACCINE 50+ (1 of 1 - PCV) 2016 ZOSTER VACCINE (1 of 2) 2016 SCREENING FOR DIABETES 04/11/2021 COVID-19 VACCINE (1 - 2023-2 5 season) 2024 INFLUENZA VACCINE (#1) 2024 DEPRESSION SCREENING 06/01/2024 HIB VACCINE Aged Out No longer eligi ble based on patient's age to complete this topic HPV VACCINE Aged Out No longer eligi ble based on patient's age to complete this topic MENINGOCOCCAL (Group B) VACC INE SHARED DECISION-MAKING Aged Out No longer eligibl e based on patient's age to complete this topic MENINGOCOCCAL GROUPS A/C/Y/W VACCINE Aged Out No longer eligible b ased on patient's age to complete this topic PNEUMOCOCCAL VACCINE Aged Out No long er eligible based on patient's age to complete this topic Advance Directives * Full Code (Latest Code Status on File) Date Activated Date Inactivated Comments 03/26/2009 11:07 AM 03/27/2009 6:[address] Judge Relationship Specialty Start Date End Date Ester Beebe MD [address] [place] [address] PCP - General Family Medicine 04/11/21
--- OUTSIDE RECORDS SUMMARY | 2024-08-11 00:40 | XMS_ITS | Clinical Summary ---
Author Organization [facility] [place] Address [address] [place] [address] Phone Care Team Providers Care Log Chain Feeder Name Role Phone Ester Beebe MD Primary Care Provider Allergies Active Allergy Reactions Criticality Noted Date Comments Xdfsg-Cgrbq-Kbenhqa-Pra moxine Itching Low 08/16/2020 Bepypkcz-Bzryfvwfwh-Hvs ymyxin Itching,Rash Medium 03/17/2019 Triple antibiotic made sore worse/itching Medications losartan (COZAAR) 25 mg tabletIndicatio ns:Family history of breast cancer 9 Active hydroCHLOROthia zide 25 mg tablet Take 25 mg by mouth daily. Active diclofenac sodium (VOLTAREN) 75 mg Tablet, Delayed Release (E.C.) Take 75 mg by mouth daily. Active DULoxetine (CYMBALTA) 30 mg Capsule, Delayed Release(E.C.) Take 30 mg by mouth daily. Active atogepant (Qulipta) 60 mg Tablet Take 60 mg by mouth daily. Active onabotulinumtox Brunilda (BOTOX INJECTION) by Injection route. For migraines Active clonazePAM (KlonoPIN) 1 mg tablet Take 1 mg by mouth 2 times daily. Active SUMAtriptan (IMITREX) 50 mg tablet Take 50 mg by mouth every 2 hours as needed for Headaches. may repeat in 2 hours; max dose 200mg in 24 hours Active cholecalciferol , vitamin D3, (VITAMIN D3 ORAL) Take 500 Int'l Units by mouth. Active meclizine (ANTIVERT) 25 mg tablet 25 mg. 2 Active zolpidem (AMBIEN) 10 mg tablet 1 Active potassium chloride (KLOR-CON) 20 mEq Extended Release tablet 4 Active D3-red wine-resveratro l-malt 5,000-200 unit-mg Capsule 125 mcg. 2 Active montelukast (SINGULAIR) 10 mg tablet Take 1 Tablet by mouth daily at bedtime. 1 Active ondansetron (ZOFRAN) 8 mg Tablet one tablet tid prn Active buPROPion HCL (WELLBUTRIN XL) 150 mg Extended Release 24 hour tablet Active Active Problems Patient Care Coordination No te Formatting of this note migh t be different from the original. Primary Care: Ester Beebe MD Referring Provider: No referring provider defined for this encounter. Other: Dr. Gege Salcedo MD PCP: Dr. 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 Overview (12/14/2009): Excised right 10/25/2009 Diffuse cystic mastopathy 12/08/2008 Family history of breast cancer 12/08/2008 Overview (12/14/2009): Maternal grandmother breast cancer age 59, mother breast cancer aged 64 (Carlie Yo), sister breast cancer age 29 (Frances Adela) Tendinitis HTN (hypertension) Encounters Date Type Department Care Team Description 08/09/2024 External Device Data STL ABSTRACTION Provider, Abstract 08/06/2024 External Device Data STL ABSTRACTION Provider, Abstract 08/05/2024 External Device Data STL ABSTRACTION Provider, Abstract 08/03/2024 External Device Data STL ABSTRACTION Provider, Abstract 07/19/2024 External Device Data STL ABSTRACTION Provider, Abstract 06/22/2024 External Device Data STL ABSTRACTION Provider, Abstract 06/22/2024 External Device Data STL ABSTRACTION Provider, Abstract 06/07/2024 External Device Data STL ABSTRACTION Provider, Abstract from Last 3 Months Family History Medical History Relation Name Comments No Known Problems Daughter Diabetes Father Heart Disease Father Breast Cancer Maternal Grandmother dx ayala gracie 59 y/o Breast Cancer Mother Carlie Yo dx @ 64 No Known Problems Other Breast Cancer Sister Frances dx @ 29 BRCA n eg Cancer Neg Hx Ovarian Cancer Neg Hx Relation Name Status Comments Daughter Father Maternal Grandmother Mother Carlie Yo Alive Other Sister Frances Social History Tobacco Use Types Packs/Day Years Used Date Smoking Tobacco: Never Smokeless Tobacco: Never Tobacco Cessation:Counseling Given: Not Answered Alcohol Use Standard Drinks/Week Comments Yes 0 [...] on file Legal Sex Female 5:41 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 Gender Identity Not on file Sexual Orientation Not on file Occupation Industry Job Start Date Job End Date Not on file Not on file Not on file Not on file Last Filed Vital Signs Vital Sign Reading Time Taken Comments Blood Pressure 125/83 09/22/2023 9:52 AM CDT Pulse 84 09/22/2023 9:52 AM CDT Temperature 36.4 C (97.5 F) 05/14/2017 12:18 PM HISTORIAN RESEARCH ASSISTANT Respiratory Rate 20 05/15/2016 2:55 PM HISTORIAN RESEARCH ASSISTANT Oxygen Saturation 100% 05/15/2016 2:55 PM HISTORIAN RESEARCH ASSISTANT Inhaled Oxygen Concentration - - Weight 81.2 kg (179 lb) 09/22/2023 9:52 AM CDT Height 160 cm (5' 3 ) 09/22/2023 9:52 AM CDT Body Mass Index 31.71 09/22/2023 9:52 AM CDT Plan of Treatment Upcoming Encounters Date Type Department Care Team (Late st Contact Info) Description 09/22/2024 9:20 AM CD[facility] [address] [place] [address] [place] [address] [facility] [address] [place] [address] 09/22/2024 10:15 AM CDT Office Visit [facility] Breast [facility] [address] [facility] [address] [place] [address] [place] [address] [facility] [facility] [address] [place] [address] Health Maintenance Due Date Last Done Comments Pre-Diabetes and Diabetes Screening 1966 DTAP/TDAP/TD VACCINES (1 - Tdap) 1985 HEPATITIS B VACCINES (1 of 3 - 19+ 3-dose series) 1985 CERVICAL CANCER SCREENING 1996 COLORECTAL SCREENING 2011 Colorectal Cancer Screening 2011 FIT-DNA Q 3 years 2011 FIT/FOBT Q 1 year 2011 Flex Sig/CT Colonography Q 5 years 2011 ZOSTER VACCINE (1 of 2) 2016 INFLUENZA VACCINE (#1) 2023 BREAST CANCER SCREENING 09/21/2024 09/22/19, 09/18/2022, 09/12/2021, Additional history exists PNEUMOCOCCAL VACCINE 0-49 YEARS Aged Out No longer eligible based on patient's age to complete this topic Medical Devices Implanted Type Area Staffing Administrator Device Identifier Shelf Expiration Date Model / Serial / Lot Hemostatic Surgicel 4x8in 1950 - [id number] Implanted:Qty: 1 on 05/15/2016 by Renetta Cancino MD at [facility] Hemostatic Left: Breast [employer] 07/01/20202 / / [id number] Hardware Screws And Titanium Plate Description:1999, REDO 2010 Procedures Procedure Name Priority Date/Time Associated Diagnosis Comments MAMMO 3D RENÉ SCREEN BILAT W OR WO CAD Routine 09/22/2023 9:40 AM CDT At high risk for breast cancer Dense breast tissue on mammogram Fibrocystic disease of left breast Family history of breast cancer Fibroadenoma of breast, unspecified laterality from Last 3 Months or Most Recently Relevant to Health Maintenance Results * MAMMO SCRN BILAT 3D RENÉ W OR WO CAD (09/22/2023 9:40 AM CDT) Anatomical Region Laterality Modality Breast Bilateral Mammography 09/22/2023 10:1 1 AM CDT Impressions 09/22/2023 12:33 PM CDT IMPRESSION: 1. No concerning findings. OVERALL FINAL ASSESSMENT: BI-RADS CATEGORY 2 - Benign findings. RECOMMENDATIONS: 1. Recommend annual mammography. Narrative 09/22/2023 12:33 PM CDT BILATERAL SCREENING DIGITAL MAMMOGRAM WITH 3D TOMOSYNTHESIS AND CAD DATE: 09/22/2023 9:40 AM DICTATION LOCATION: [facility] HISTORY: Routine yearly screening exam. TECHNIQUE: Low-dose full-field digital breast tomosynthesis examination was performed of both breasts with 2D and 3D acquisitions. CAD was utilized. COMPARISON: Studies dating back to 08/01/2019 BREAST COMPOSITION: There are scattered areas of fibroglandular density. FINDINGS: No concerning dominant masses, suspicious calcifications, parenchymal asymmetries or areas of architectural distortion are identified in either breast. Changes related to bilateral excisional biopsies. Procedure Note Tang Walker MD - 09/22/2023 BILATERAL SCREENING DIGITAL MAMMOGRAM WITH 3D TOMOSYNTHESIS AND CAD DATE: 09/22/2023 9:40 AM DICTATION LOCATION: [facility] HISTORY: Routine yearly screening exam. TECHNIQUE: Low-dose full-field digital breast tomosynthesis examination was performed of both breasts with 2D and 3D acquisitions. CAD was utilized. COMPARISON: Studies dating back to 08/01/2019 BREAST COMPOSITION: There are scattered areas of fibroglandular density. FINDINGS: No concerning dominant masses, suspicious calcifications, parenchymal asymmetries or areas of architectural distortion are identified in either breast. Changes related to bilateral excisional biopsies. IMPRESSION: 1. No concerning findings. OVERALL FINAL ASSESSMENT: BI-RADS CATEGORY 2 - Benign findings. RECOMMENDATIONS: 1. Recommend annual mammography. Gege Salcedo MD MAMMO ORDERABLES Final R esult from Last 3 Months or Most Recently Relevant to Health Maintenance Insurance [employer] [facility] Address: [id number] [place] [address] Advance Directives For more information, please contact: [phone] * Full Code (Latest Code Status on File) Date Activated Date Inactivated Comments 05/15/2016 12:37 PM 05/15/2016 5:15 PM * Full Code Date Activated Date Inactivated Comments 05/15/2016 12:02 PM 05/15/2016 12:37 PM Care Teams Log Chain Feeder Relationship Specialty Start Date End Date Ester Beebe MD [address] [place] [address] PCP - General Family Practice 04/28/16
--- OUTSIDE RECORDS SUMMARY | 2024-08-11 00:40 | XMS_ITS | Clinical Summary ---
Author Organization [facility] Address [address] [place] [id number] Care Team Providers Care Stewardesses Teacher Name Role Phone Ester Beebe MD Primary Care Provider Allergies Active Allergy Reactions Criticality Noted Date Comments Neomycin-Bacitracin Zn-Polymyx Rash Low 08/13 Medications No known medications Social History Tobacco Use Types Packs/Day Years Used Date Smoking Tobacco: Never Smokeless Tobacco: Never Alcohol Use Standard Drinks/Week Comments Never 0 (1 standard drink = 0.6 oz pur e alcohol) AUDIT-C Answer Date Recorded Frequency of Alcohol Consumption Never 08/14/2019 Average Number of Drinks Not on file 020 Frequency of Binge Drinking Not on file 07/30 Comments No Sex and Gender Information Value Date Recorded Sex Assigned at Not on file Legal Sex Female 1:37 AM CDT Gender Identity Not on file Sexual Orientation Not on file Last Filed Vital Signs Vital Sign Reading Time Taken Comments Blood Pressure 137/96 11/27/2019 7:58 AM CDT Pulse 88 11/27/2019 7:58 AM CDT Temperature 36.5 C (97.7 F) 11/27/2019 7:58 AM CDT Respiratory Rate 17 11/27/2019 7:58 AM CDT Oxygen Saturation 98% 11/27/2019 7:58 AM CDT Inhaled Oxygen Concentration - - Weight 74.8 kg (165 lb) 11/27/2019 7:58 AM CDT Height 160 cm (5' 3 ) 11/27/2019 7:58 AM CDT Body Mass Index 29.23 11/27/2019 7:58 AM CDT Plan of Treatment Health Maintenance Due Date Last Done Comments Cervical Cancer Screening Pa p Smear (Age 30 to 64) Every 3 Years 1966 Colorectal Cancer Screening Colonoscopy (10 Years) 1966 Annual Physical 1969 Hepatitis C 1984 Hepatitis B Vaccines (1 of 3 - 19+ 3-dose series) 1985 Cervical Cancer Screening Pa p with HPV Testing (Age 30 to 64) Every 5 Years 1996 Cervical Cancer Screening wi th HPV 1996 Mammogram Screening 2006 DTaP, Tdap and Td Vaccines ( 2 - Td or Tdap) 05/20/2022 05/20/2012, 12/27/2004, 06/02/1989 COVID-19 Vaccine (2023-2 5 season) 2024 Influenza Adult (#1) 2024 Zoster Vaccines Completed 11/23/2018, 09/16/2018 Meningococcal B Vaccine Aged Out No l onger eligible based on patient's age to complete this topic Meningococcal Vaccine Aged Out No irma luz eligible based on patient's age to complete this topic Pneumococcal Vaccine: Pediatrics (0 to 5 Years) and At-Risk Patients (6 to 64 Years) Aged Out No longer eligible b ased on patient's age to complete this topic RSV Immunizations Under 20 Months Aged Out No longer eligible b ased on patient's age to complete this topic Insurance SocialProof [facility] Advance Directives Documents on File Type Date Recorded Patient Scoop Operator Expl anation Advance Directives and Living Will 08/02/2012 ADVANCED DIRECTIVES Care Teams Stewardesses Teacher Relationship Specialty Start Date End Date Ester Beebe MD [address] [place] [address] PCP - General FAMILY PRACTICE 08/14/19
--- OUTSIDE RECORDS SUMMARY | 2024-08-11 00:40 | XMS_ITS | Referral Summary ---
[facility] Organization [facility] Address [address] [place] [address] Care Team Providers Care Food And Nutrition Teacher Name Role Phone Ester Beebe MD Primary Care Provider Allergies Active Allergy Reactions Criticality Noted Date Comments Ptjuzpmq-Akefpaawqt-Cmhgl yxin Itching Low 03/17/2019 Triple antibiotic made sore worse/itching Medications losartan (COZAAR) 25 mg tablet Take 25 mg by mouth daily Active cholecalciferol, vitamin D3, (VITAMIN D3 ORAL) Take 500 Int'l Units by mouth Active polyethylene glycol (MIRALAX) 17 gram packetIndications :constipation Take 17 g by mouth daily Active methylcellulose oral powder Take by mouth daily Active turmeric root extract 500 mg capsule Take by mouth Active vitamin B complex capsule Take 1 capsule by mouth daily Active fremanezumab-vfrm (AJOVY) 225 mg/1.5 mL auto-injector subcutaneous auto-injectorIndi cations:Migraine Prevention Inject 1.5 mL (225 mg total) under the skin every 30 (thirty) days 1 mL 11 1 Active butalbital-acetam inophen-caffeine (ESGIC) 50-325-40 mg per tabletIndications :Migraine without aura and without status migrainosus, not intractable Take one (1) TABLET by mouth FOUR (4) TIMES DAILY as needed 15 tablet 3 2 Active zolpidem (AMBIEN) 10 mg tablet TAKE ONE HALF (1/2) TABLET BY MOUTH NIGHTLY NEEDED FOR INSOMNIA 30 tablet 1 2 Active Active Problems Problem Noted Date Diagnosed Date HARMONY (obstructive sleep apnea) 12/27/2020 Assessment & Plan (12/27/2020 9:47 AM CDT): The patient continues to benefit from CPAP at 10 cm water pressure. She is going to restart her migraine medication and for headaches do not improve, then she will call back and I will order a CPAP titration study. Her DME is [facility]. Primary insomnia 12/27/2020 Assessment & Plan (12/27/2020 9:47 AM CDT): The patient continues to use Ambien 3-5 mg at bedtime for insomnia and this is working fairly well for her. Migraine without aura and wi thout status migrainosus, not intractable 03/17/2019 Assessment & Plan (07/11/2021 10:04 AM SENIOR PROGRAMMER): Much improved on Ajovy 225 monthly, happy with current management Needs a few days of treatment per month, usually responds to excedrin, rarely needs fioricet, although this does work well when she takes it Continue current management and efforts at lifestyle management Continue yearly follow-up. She will consider transition to provider closer to home since she is doing well, but will call to schedule 1 year follow-up here or in [place] office if preferred Assessment & Plan (01/17/2021 11:45 AM CDT): 12 days per month Some episodic dizziness but less than in past. Wants to try alternate treatment, emgality is least preferred due to burning at injection site. Aimovig was of uncertain benefit/side effect (now concerned cinnamon is causing the same 'not feeling right' symptom she was concerned Aimovig and Emgality caused). She is interested in trying Ajovy and sample provided with prescription for auto injector I will have her return in 3-6 months to discuss benefit of Ajovy injections and decide next step She did not include on med list but reports she has been on lexapro and felt that helped headaches/anxiety. Assessment & Plan (07/05/2020 9:54 AM SENIOR PROGRAMMER): Has stopped aimovig without benefit on dizziness, but no return of headaches. Has had some phantom smells since having COVID, but this is getting better slowly. She is happy to remain off treatment at this time and will call if change/issue I offered 1 year follow-up and she will decide later on if she would like to continue regular follow-up or just follow-up PRN if things remain well controlled. Assessment & Plan (03/08/2020 11:43 AM CDT): Headaches less severe, has mild symptom every morning Fatigue and dizziness are much worse, wonders if aimovig cause, although I expressed my suspicion this was something other than aimovig. She reports adequate CPAP use, as symptoms of nonrefreshing sleep, daytime fatigue, naps in evening, morning headaches could otherwise suggest HARMONY, has new machine so not clear why this would be worse. Has appointment with sleep doctor in April to discuss. Discussed possibility of depression contributing to symptoms, as we had discussed restarting antidepressant at last visit, however she does not think that is the case. She would like to follow-up with ENT testing, which I suggested she have forwarded to my office for review, before making change. If they do not have explanation, she would like to try holding aimovig as next step. I suggested after that my next recommendation would be SNRI or restarting lexapro if still having issues. Will plan on 3 month follow-up but she will call to discuss after ENT evaluation Assessment & Plan (12/29/2019 10:07 AM CDT): Headaches have worsened with recent stressors/weather changes. Increased aimovig to 140 last weeks, feels so far last week has been better, but obviously needs to see how things do with time. Discussed SNRIs vs Ajovy as potential next steps if this is inadequate. She has previously seen benefit to lexapro after sister's and questions how much stress is contributing currently. Assessment & Plan (09/19/2019 3:51 PM CDT): Headaches worsened over last couple months. Had received refill request in July for Emgality instead of Aimovig, unclear why pharmacy requested this refill, but she reports better control during her time on Aimovig and feels headaches worsened after this switch. I would like to try to get her back on Aimovig 70 mg, order placed and she will call if issue/concern/coverage problem. Continued to encourage hydration and limiting fioricet use as every other day use of this is a problem for headaches. Will plan on 3 month follow-up but can adjust medication as needed in interim for improved control Assessment & Plan (03/17/2019 9:43 AM CDT): 53 year old woman with one day weekly of migraine headache on amitriptyline 25 mg, but finds constipation and dry mouth so bothersome she does not think she can continue medication. She had limiting side effects with topamax and propranolol as well. Patient reports the following headache risk factors: Caffeine overuse, poor hydration, lack of cardiovascular exercise, family history I reviewed all these factors at length with the patient and suggested treatment plan should include focused effort to reduce these lifestyle contributions to headache risk. We also discussed headache prevention and abortive medications, including: Lifestyle change alone given concern that inadequate fluid intake is main contributor to her dry mouth and constipation (which preceded amitriptyline but much worse on it) Trial nortriptyline in place of amitriptyline Aimovig, which her sister responded well to. She would like to discontinue amitriptyline and trial aimovig, although I did rehabilitation services counselor her that main side effects of this medication are injection site reactions and constipation and that increased fluid intake will be vital regardless of approach. I provided her with sample aimovig and instruction to call if insurance coverage inadequate to make medication affordable. I did inform her of assistance program that she could look into as well. RTC in 3 months, call for changes/issues in interim and if Aimovig too expensive then would consider nortriptyline as next step. Inadequate fluid intake 03/17/2019 Assessment & Plan (03/17/2019 9:45 AM CDT): 1-2 bottles of water a day, Drinks predominantly iced tea which I told her to wean Constipation 03/17/2019 Assessment & Plan (09/19/2019 3:53 PM CDT): Preceded CGRP, on miralax daily. Management per PCP, encouraged hydration. Assessment & Plan (03/17/2019 9:44 AM CDT): Chronic issue, worse on amitriptyline Suspect dehydration a contributor Continue management, watch out for worsening after starting Aimovig Social History Tobacco Use Types Packs/Day Years Used Date Smoking Tobacco: Never Smokeless Tobacco: Never Alcohol Use Standard Drinks/Week Comments Yes 0 (1 standard drink = 0.6 oz pur e alcohol) rare Personal Safety Answer Date Recorded Getting School Help Needed Not on file 08/14 Comments Unknown Sex and Gender Information Value Date Recorded Sex Assigned at Not on file Legal Sex Female 2:48 AM SENIOR PROGRAMMER Gender Identity Not on file Sexual Orientation Not on file Last Filed Vital Signs Vital Sign Reading Time Taken Comments Blood Pressure 124/70 01/17/2021 11:08 AM CDT Pulse 80 01/17/2021 11:08 AM CDT Temperature 36.4 C (97.6 F) 12/27/2020 9:07 AM CDT Respiratory Rate 16 01/17/2021 11:08 AM CDT Oxygen Saturation 98% 12/27/2020 9:07 AM CDT Inhaled Oxygen Concentration - - Weight 77.1 kg (170 lb) 01/17/2021 11:08 AM CDT Height 160 cm (5' 3 ) 01/17/2021 11:08 AM CDT Body Mass Index 30.11 01/17/2021 11:08 AM CDT Plan of Treatment Not on file Insurance [id number] [facility] [employer] [id number] Care Teams Food And Nutrition Teacher Relationship Specialty Start Date End Date Ester Beebe MD PCP - General Family Medicine 02/09/19
--- OUTSIDE RECORDS SUMMARY | 2024-08-11 00:40 | XMS_ITS | Clinical Summary ---
[facility] Organization [facility] Address [address] [place] [address] Care Team Providers Care Music Mixer Name Role Phone Ester Beebe MD Primary Care Provider Allergies Active Allergy Reactions Criticality Noted Date Comments Omhwpcai-Ouxracdhbh-Uhjod yxin Itching Low 03/17/2019 Triple antibiotic made [...] 03/17/2019 Assessment & Plan (07/11/2021 10:04 AM PROFESSOR OF BIOLOGICAL SCIENCES): Much improved on Ajovy 225 monthly, happy [...] schedule 1 year follow-up here or in [place] office if preferred Assessment & Plan (01/17/2021 [...] headaches/anxiety. Assessment & Plan (07/05/2020 9:54 AM PROFESSOR OF BIOLOGICAL SCIENCES): Has stopped aimovig without benefit on dizziness, [...] amitriptyline and trial aimovig, although I did counselor marriage and family her that main side effects of this [...] watch out for worsening after starting Aimovig Surgical History Surgery Date Site/Laterality Comments CERVICAL FUSION 06/01/1998 - 05/31/1999 C5,6,7 Medical History Medical History Date Comments Hypertension Family History Medical History Relation Name Comments Diabetes Brother 56 Diabetes Father 64 Hypertension Father 64 Stroke Father 64 Breast cancer Mother 80 Breast cancer Sister 1 44 Migraines Sister 2 47 Relation Name Status Comments Brother 56 Alive Father 64 Mother 80 Alive Sister 1 44 Sister 2 47 Alive Social History Tobacco Use Types Packs/Day Years [...] on file Legal Sex Female 2:48 AM PROFESSOR OF BIOLOGICAL SCIENCES Gender Identity Not on file Sexual Orientation Not on file Obstetrics History Last Filed Vital Signs Vital Sign Reading [...] Plan of Treatment Not on file Insurance [place] [address] Care Teams Music Mixer Relationship Specialty Start Date End Date Ester Beebe MD PCP - General Family Medicine 02/09/19
--- OUTSIDE RECORDS SUMMARY | 2024-08-11 00:41 | XMS_ITS ---
Author Organization Unknown Medications Medication Instructions Effective Dates (start - stop) Status {8 (estradiol 0.01 MG Vagina l Insert [Imvexxy]) } Pack [Imvexxy 10 MCG Maintenance Pack] - Completed hydrochlorothiazide 25 MG Or al Tablet - Completed atogepant 60 MG Oral Tablet [Qulipta] - Completed montelukast 10 MG Oral Tablet 2023-06-26 00:00:00Z - Completed atogepant 60 MG Oral Tablet [Qulipta] - Completed Microencapsulated potassium chloride 20 MEQ Extended Release Oral Tablet - C ompleted montelukast 10 MG Oral Tablet 2023-05-27 00:00:00Z - Completed - - Compl eted hydrochlorothiazide 25 MG Or al Tablet - Completed sumatriptan 50 MG Oral Tablet 2023-08-11 00:00:00Z - Completed montelukast 10 MG Oral Tablet 2023-09-25 00:00:00Z - Completed montelukast 10 MG Oral Tablet 2023-04-28 00:00:00Z - Completed hydrochlorothiazide 25 MG Or al Tablet - Completed meclizine hydrochloride 25 M G Oral Tablet - Completed hydrochlorothiazide 25 MG Or al Tablet - Completed doxycycline monohydrate 100 MG Oral Capsule - Completed montelukast 10 MG Oral Tablet 2023-01-30 00:00:00Z - Completed {21 (methylprednisolone 4 MG Oral Tablet) } Pack - Completed duloxetine 30 MG Delayed Rel ease Oral Capsule - Completed losartan potassium 50 MG Oral Tablet 202300:00:00Z - Completed diclofenac sodium 75 MG Park yed Release Oral Tablet - Completed duloxetine 30 MG Delayed Rel ease Oral Capsule - Completed zolpidem tartrate 10 MG Oral Tablet 00:00:00Z - Completed atogepant 60 MG Oral Tablet [Qulipta] - Completed hydrochlorothiazide 25 MG Or al Tablet - Completed montelukast 10 MG Oral Tablet 2023-11-27 00:00:00Z - Completed diclofenac sodium 75 MG [place] yed Release Oral Tablet - Completed hydrochlorothiazide 25 MG Or al Tablet - Completed atogepant 60 MG Oral Tablet [Qulipta] - Completed montelukast 10 MG Oral Tablet 2023-02-28 00:00:00Z - Completed atogepant 60 MG Oral Tablet [Qulipta] - Completed - - Compl eted sumatriptan 50 MG Oral Tablet 2023-06-15 00:00:00Z - Completed zolpidem tartrate 10 MG Oral Tablet 00:00:00Z - Completed losartan potassium 50 MG Oral Tablet 202200:00:00Z - Completed zolpidem tartrate 10 MG Oral Tablet 00:00:00Z - Completed meclizine hydrochloride 25 M G Oral Tablet - Completed hydrochlorothiazide 25 MG Or al Tablet - Completed zolpidem tartrate 10 MG Oral Tablet :00:00Z - Completed duloxetine 30 MG Delayed Rel ease Oral Capsule - Completed ondansetron 4 MG Oral Tablet [id number] 0:00:00Z - Completed ondansetron 4 MG Oral Tablet [id number] 0:00:00Z - Completed hydrochlorothiazide 25 MG Or al Tablet - Completed duloxetine 30 MG Delayed Rel ease Oral Capsule - Completed duloxetine 30 MG Delayed Rel ease Oral Capsule - Completed cefdinir 300 MG Oral Capsule [id number] 0:00:00Z - Completed duloxetine 30 MG Delayed Rel ease Oral Capsule - Completed atogepant 60 MG Oral Tablet [Qulipta] - Completed losartan potassium 50 MG Oral Tablet 2022:00:00Z - Completed sumatriptan 50 MG Oral Tablet 2023-05-18 00:00:00Z - Completed zolpidem tartrate 10 MG Oral Tablet :00:00Z - Completed atogepant 60 MG Oral Tablet [Qulipta] - Completed hydrochlorothiazide 25 MG Or al Tablet - Completed ipratropium bromide 0.042 MG /ACTUAT Metered Dose Nasal [place] - Completed - - Compl eted duloxetine 30 MG Delayed Rel ease Oral Capsule - Completed montelukast 10 MG Oral Tablet 2023-07-27 00:00:00Z - Completed hydrochlorothiazide 25 MG Or al Tablet - Completed atogepant 60 MG Oral Tablet [Qulipta] - Completed hydrochlorothiazide 25 MG Or al Tablet - Completed losartan potassium 50 MG Oral Tablet 202300:00:00Z - Completed diclofenac sodium 75 MG Park yed Release Oral Tablet - Completed zolpidem tartrate 10 MG Oral Tablet :00:00Z - Completed meclizine hydrochloride 25 M G Oral Tablet - Completed duloxetine 30 MG Delayed Rel ease Oral Capsule - Completed ondansetron 4 MG Oral Tablet [id number] 0:00:00Z - Completed zolpidem tartrate 10 MG Oral Tablet :00:00Z - Completed montelukast 10 MG Oral Tablet 2023-10-27 00:00:00Z - Completed duloxetine 30 MG Delayed Rel ease Oral Capsule - Completed montelukast 10 MG Oral Tablet 2022-12-29 00:00:00Z - Completed meclizine hydrochloride 25 M G Oral Tablet - Completed dexamethasone 6 MG Oral Tablet 2023-06-04 T00:00:00Z - Completed atogepant 60 MG Oral Tablet [Qulipta] - Completed montelukast 10 MG Oral Tablet 2023-03-30 00:00:00Z - Completed duloxetine 30 MG Delayed Rel ease Oral Capsule - Completed hydrochlorothiazide 25 MG Or al Tablet - Completed diclofenac sodium 75 MG Park yed Release Oral Tablet - Completed montelukast 10 MG Oral Tablet 2023-08-26 00:00:00Z - Completed {21 (methylprednisolone 4 MG Oral Tablet) } Pack - Completed atogepant 60 MG Oral Tablet [Qulipta] - Completed zolpidem tartrate 10 MG Oral Tablet 02-23T00:00:00Z - Completed duloxetine 30 MG Delayed Rel ease Oral Capsule - Completed {21 (methylprednisolone 4 MG Oral Tablet) } Pack - Completed atogepant 60 MG Oral Tablet [Qulipta] - Completed duloxetine 30 MG Delayed Rel ease Oral Capsule - Completed Patient Care team information Name Category Status Period Participants - - Proposed period not known -
[2024-08-11 11:06] VITALS: BP 122/87; PULSE 83; RESP 18; TEMP 36.6; O2SAT 100
[2024-08-11] MEDS: LACTATED RINGERS 1,000 ML 150 ML IV CONT (11:20)
--- NOTE | 2024-08-11 11:34 | P.PNAN_ITS ---
Anes - Initial Pre Proc Eval Procedure: Operation Date: 08/11/24 12:30 Proposed Procedures p Screening Colonoscopy - Gagan Reid MD Date/Time: 08/11/24 11:34 Surgeon: Gagan Reid MD Pre Op Diagnosis: screening colon Patient Data Age: 59 Gender: F Height: 1.6 m Weight: 72.3 kg Last Vital Signs Temp 36.6 C 08/11/24 11:06 Pulse 83 08/11/24 11:06 Resp 18 08/11/24 11:06 BP 122/87 08/11/24 11:06 Pulse Ox 100 08/11/24 11:06 O2 Del Method Room Air 08/11/24 11:06 Allergies Allergy/AdvReac Type Severity Reaction Status Date / Time bacitracin Allergy Unknown Swelling Verified 08/04/24 09:41 benzalkonium chloride Allergy Unknown Swelling Verified 08/04/24 09:41 gramicidin D Allergy Unknown Swelling Verified 08/04/24 09:41 polymyxin B Allergy Unknown Swelling Verified 08/04/24 09:41 BACITRACIN ZINC Allergy Unknown Swelling Uncoded 08/04/24 09:41 NEOMYCIN SULFATE Allergy Unknown Swelling Uncoded 08/04/24 09:41 POLYMYXIN B SULFATE Allergy Unknown Swelling Uncoded 05/11/23 07:43 triple antibiotics AdvReac rash Uncoded 08/04/24 09:41 Home Medications ?Medication ?Instructions ?Recorded ?Confirmed ?Type atogepant 60 mg tablet (Qulipta) 60 mg PO DAILY 04/27/23 08/11/24 History clonazepam 1 mg tablet 1 mg PO BID PRN Dizziness 04/27/23 08/04/24 History diclofenac sodium 75 mg 75 mg PO DAILY 04/27/23 04/27/23 History tablet,delayed release duloxetine 30 mg capsule,delayed 30 mg PO DAILY 04/27/23 08/11/24 History release hydrochlorothiazide 25 mg tablet 25 mg PO DAILY 04/27/23 08/11/24 History losartan 50 mg tablet 50 mg PO DAILY 04/27/23 08/11/24 History meclizine 25 mg tablet 25 mg PO DAILY PRN Dizziness 04/27/23 08/04/24 History zolpidem 10 mg tablet 10 mg PO HS PRN Insomnia 04/27/23 04/27/23 History cholecalciferol (vitamin D3) 50 50 mcg PO DAILY 08/04/24 08/11/24 History mcg (2,000 unit) capsule (Vitamin D3) loratadine 10 mg tablet (Claritin) 10 mg PO DAILY 08/04/24 08/11/24 History montelukast 10 mg tablet 10 mg PO DAILY 08/04/24 08/11/24 History trazodone 50 mg tablet 50 mg PO HS PRN insomnia 08/04/24 08/04/24 History Patient hx anesthesia problems: none Family hx anesthesia problems: none Results Review: All pre-operative results and documents have been reviewed as part of the pre- operative evaluation. [facility] Past Medical History Medical History (Updated 08/11/24 @ 11:34 by Mac Rodriguez MD) HARMONY on CPAP Social History Social History Smoking status: Never smoker Alcohol intake: never Substance use: never Substance use type: does not use Living arrangements: with family Spiritual care concerns: No Anes - Eval Final PreProcedure Day of Procedure 08/11/24 11:34 Patient weight: overweight Heart: regular rate and rhythm Lungs: clear to auscultation Airway: Mallampati scale class II Neurological: alert and oriented Last oral intake: >/= 8 hours ASA classification: III Emergent: no Anesthetic plan: proceed Anesthesia type and monitoring: general GIVS and standard monitoring Results Review: All pre-operative results and documents have been reviewed as part of the pre- operative evaluation. Informed Consent: The patient's anesthetic plan and its attendant risks and benefits were discussed with the patient/family/POA. Questions were solicited and answers provided to the satisfaction of the patient/family/POA.
--- NOTE | 2024-08-11 12:09 | PM.HPGS ---
History of Present Illness History of Present Illness Consent: Risks, benefits, and alternatives have been discussed and questions answered. Patient agrees to proceed with procedure. Chief complaint: screening colon Narrative: Uma Lopes is a 59 year old female here for screening colonoscopy, last one 2022 but poor prep Review of Systems Review of Systems: All systems reviewed & are unremarkable except as noted in HPI and below PMFSH Past Medical History Medical History (Updated 08/11/24 @ 11:34 by Mac Rodriguez MD) HARMONY on CPAP Social History Social History Smoking status: Never smoker Alcohol intake: never Substance use: never Substance use type: does not use Living arrangements: with family Spiritual care concerns: No Meds Home Medications and Allergies Home Medications ?Medication ?Instructions ?Recorded ?Confirmed ?Type atogepant 60 mg tablet (Qulipta) 60 mg PO DAILY 04/27/23 08/11/24 History clonazepam 1 mg tablet 1 mg PO BID PRN Dizziness 04/27/23 08/04/24 History diclofenac sodium 75 mg 75 mg PO DAILY 04/27/23 04/27/23 History tablet,delayed release duloxetine 30 mg capsule,delayed 30 mg PO DAILY 04/27/23 08/11/24 History release hydrochlorothiazide 25 mg tablet 25 mg PO DAILY 04/27/23 08/11/24 History losartan 50 mg tablet 50 mg PO DAILY 04/27/23 08/11/24 History meclizine 25 mg tablet 25 mg PO DAILY PRN Dizziness 04/27/23 08/04/24 History zolpidem 10 mg tablet 10 mg PO HS PRN Insomnia 04/27/23 04/27/23 History cholecalciferol (vitamin D3) 50 50 mcg PO DAILY 08/04/24 08/11/24 History mcg (2,000 unit) capsule (Vitamin D3) loratadine 10 mg tablet (Claritin) 10 mg PO DAILY 08/04/24 08/11/24 History montelukast 10 mg tablet 10 mg PO DAILY 08/04/24 08/11/24 History trazodone 50 mg tablet 50 mg PO HS PRN insomnia 08/04/24 08/04/24 History Allergies Allergy/AdvReac Type Severity Reaction Status Date / Time bacitracin Allergy Unknown Swelling Verified 08/04/24 09:41 benzalkonium chloride Allergy Unknown Swelling Verified 08/04/24 09:41 gramicidin D Allergy Unknown Swelling Verified 08/04/24 09:41 polymyxin B Allergy Unknown Swelling Verified 08/04/24 09:41 BACITRACIN ZINC Allergy Unknown Swelling Uncoded 08/04/24 09:41 NEOMYCIN SULFATE Allergy Unknown Swelling Uncoded 08/04/24 09:41 POLYMYXIN B SULFATE Allergy Unknown Swelling Uncoded 05/11/23 07:43 triple antibiotics AdvReac rash Uncoded 08/04/24 09:41 Vital Signs Vital Signs - 24 hr 08/11/24 11:06 Temperature 98 F Pulse Rate 83 Respiratory Rate 18 Blood Pressure 122/87 Pulse Oximetry 100 Oxygen Delivery Room Air Exam Const: General: comfortable and no acute distress HENMT: Face/Nose/Sinus: Normal nares present Eyes: General: appearance normal, both eyes and all related structures Neck: Neck: no JVD Resp: Auscultation: clear to auscultation bilaterally Cardio: Rate: regular rate Rhythm: regular rhythm GI: Inspection: non-distended GI Palp: Yes Soft to palpation Skin: General skin exam: normal color Neuro: General: gait normal Speech: normal speech Extrem: General: normal to inspection Psych: Mental Status: mental status grossly normal Assessment and Plan Assessment and plan (1) Colon cancer screening: Code(s): Z12.11 - Encounter for screening for malignant neoplasm of colon Status: Acute Assessment and Plan: colonoscopy
[2024-08-11 12:29] VITALS: BP 122/76; PULSE 73; RESP 18; O2SAT 97
[2024-08-11 12:39] VITALS: BP 135/80; PULSE 69; RESP 25; O2SAT 100
[2024-08-11 12:49] VITALS: BP 143/82; PULSE 70; RESP 13; O2SAT 99
== END 2024-08-11 12:58 | disposition home or self-care (01) ==
PROVIDERS: PCP Family Medicine; Referring Provider Internal Medicine Gastroenterology; Visit Provider Internal Medicine Gastroenterology
PROC: 0DJD8ZZ Inspection of Lower Intestinal Tract, Via Natural or Artificial Opening Endoscopic (ICD-10-PCS; CPT 45378; principal; 2024-08-11 12:30)
DX: Z12.11 Encounter for screening for malignant neoplasm of colon (principal); K64.8 Other hemorrhoids; G47.33 Obstructive sleep apnea (adult) (pediatric); Z99.89 Dependence on other enabling machines and devices
CPT/HCPCS: 45378; J2003; J2704; J7120

== ENCOUNTER 2025-03-28 08:03 | Outpatient (CLI) | payer OTHER, SELFPAY ==
--- NOTE | ~2025-03-28 | MR_ITS ---
EXAMINATION: MR cervical spine wo con DATE: 03/28/2025 08:46 INDICATION: Cervical radiculopathy. TECHNIQUE: Magnetic resonance imaging (MRI) of the cervical spine was performed without intravenous contrast. COMPARISON: Cervical spine MRI 02/18/21 FINDINGS: There is 12 degrees levoscoliosis of cervicothoracic spine. There is kyphosis of upper cervical spine. There is 4 mm retrolisthesis of C4 on C5. There are changes of anterior fusion procedure from C5 to C7 with healed interbody bone graft and anterior plate and screws. There is severely decreased disc height at C4-C5 and C7-T1. The spinal cord signal intensity is normal. The following disc levels are specifically discussed: C2-C3: The disc does not extend beyond the endplate margin. There is mild right and moderate left uncovertebral joint osteoarthritis. There is moderate right and severe left facet joint osteoarthritis. There is mild left neural foraminal stenosis. There is no central canal stenosis. C3-C4: The disc is bulging. There is severe bilateral uncovertebral joint osteoarthritis. There is severe bilateral facet joint osteoarthritis. There is moderate right and mild left neural foraminal stenosis. There is mild central canal stenosis with ventral indentation of the spinal cord. C4-C5: The disc is bulging. There is severe bilateral uncovertebral joint osteoarthritis. There is severe bilateral facet joint osteoarthritis. There is moderate bilateral neural foraminal stenosis. There is moderate central canal stenosis with ventral and dorsal indentation of the spinal cord. C5-C6: There is mild bilateral uncovertebral joint hypertrophy. There is no facet joint hypertrophy. There is no neural foraminal stenosis. There is no central canal stenosis. C6-C7: There is mild right uncovertebral joint hypertrophy. There is no facet joint hypertrophy. There is mild right neural foraminal stenosis. There is no central canal stenosis. C7-T1: The disc is bulging. There is moderate right and severe left uncovertebral joint osteoarthritis. There is severe bilateral facet joint osteoarthritis. There is mild left neural foraminal stenosis. There is mild central canal stenosis. IMPRESSION: 1. Severe cervical spondylosis, stable from 02/18/2021. 2. Anterior fusion procedure from C5 to C7. Reviewed, dictated and finalized at location E.
--- NOTE | ~2025-03-28 | MR_ITS ---
EXAMINATION: MR thoracic spine wo con DATE: 03/28/2025 09:02 INDICATION: Mid back pain. TECHNIQUE: Magnetic resonance imaging (MRI) of the thoracic spine was performed without intravenous contrast. COMPARISON: None FINDINGS: There is 7 degrees dextrocurvature of thoracic spine. There are changes of anterior fusion procedure from C5 to C7 with anterior plate and screws. There is 2 mm anterolisthesis of C7 on T1, T3 on T4, T4 on T5. There is mildly decreased disc height at multiple levels. There is moderately decreased disc height at T2-T3, T3-T4, and T4-T5. There is multilevel facet joint osteoarthritis, severe at multiple levels in upper thoracic spine. The discs are bulging from C7-T1 through T8-T9 and at T10-T11 with mild central canal stenosis. There is mild neural foraminal stenosis at multiple levels on either side. On the right, there is moderate neural foraminal stenosis. T1-T2. On the left, there is moderate neural foraminal stenosis at C7-T1 and T2-T3. The spinal cord signal intensity is normal. The conus medullaris is at L1. IMPRESSION: 1. Moderate thoracic spondylosis. Reviewed, dictated and finalized at location E.
== END 2025-03-28 08:04 | disposition home or self-care (01) ==
LOC: MICIMG 08:04
PROVIDERS: PCP Family Medicine; Visit Provider Nurse Practitioner Family
DX: R20.2 Paresthesia of skin (principal); M25.511 Pain in right shoulder; M47.22 Other spondylosis with radiculopathy, cervical region; M47.894 Other spondylosis, thoracic region; Z98.1 Arthrodesis status
CPT/HCPCS: 72141; 72146